=== PATIENT | male | born 1980 | race Caucasian/White ===

== ENCOUNTER 2022-07-24 15:25 | Emergency (ER) | payer BC, OTHER ==
[2022-07-24] MEDS ORDERED: Cephalexin 500 MG Cap PO ONE (22:15)
[2022-07-24] MEDS ORDERED: Doxycycline Monohydrate 100 MG Cap PO ONE (22:16)
== END 2022-07-24 23:02 | disposition home or self-care (01) ==
LOC: JD.ED 15:25
DX: L03.311 Cellulitis of abdominal wall (principal); F17.210 Nicotine dependence, cigarettes, uncomplicated; Z79.899 Other long term (current) drug therapy
CPT/HCPCS: 87070; 87075; 87205; 99283; A9270-GY